=== PATIENT | male | born 1930 | race Caucasian/White ===

== ENCOUNTER 2017-01-04 11:31 | Emergency (ER) | payer OTHER ==
[~2017-01-04] VITALS: Ht 172.7 cm; Wt 72.1 kg
[2017-01-04 11:53] VITALS: BP 147/68; PULSE 69; RESP 16; TEMP 98.6; O2SAT 99
[2017-01-04] MEDS ORDERED: ASPI1TAB91 PO (12:03)
--- NOTE | 2017-01-04 12:16 | PD ---
HPI Chief Complaint: Bite or Sting Time Seen by Provider: 12:06 Travel History International Travel<30 days: No Contact w/Intl Traveler<30days: No Traveled to known affect area: No History of Present Illness HPI 86-year-old male presents to emergency Department with a dog bite to the left calf, which occurred this morning while he was walking. Patient states he was on the sidewalk passing gentleman who was on his cell phone with the dog's leash, when the dog bit him in the left calf. He didn't realize he was leaving that much until he arrived at his home. He is having minor discomfort, and has cleansed the wound and covered it with bandages already. Patient is unsure of his last tetanus shot. Animal control has been notified and report has been given. Patient denies any other issues. He has no known drug allergies. PFSH Past Medical History Hx Anticoagulant Therapy: Yes (asa 81mg) Cerebrovascular Accident: Yes (cva) Social History Alcohol Use: Yes Tobacco Use: No Substance Use: No Allergies-Medications (Allergen,Severity, Reaction): Coded Allergies: No Known Allergies (Unverified , 01/04/17) Reported Meds & Prescriptions Reported Meds & Active Scripts Active Reported Aspirin Adult Low Strength (Aspirin) 81 Mg Tabdr 81 Mg PO DAILY Review of Systems Except as stated in HPI: all other systems reviewed are Neg General / Constitutional: No: Fever Eyes: No: Visual changes HENT: No: Headaches Cardiovascular: No: Chest Pain or Discomfort Respiratory: No: Shortness of Breath Gastrointestinal: No: Abdominal Pain Genitourinary: No: Dysuria Musculoskeletal: No: Pain Skin: Positive Lesions (see history present illness.), No Rash Neurologic: No: Weakness Psychiatric: No: Depression Endocrine: No: Polydipsia Hematologic/Lymphatic: No: Easy Bruising Physical Exam Narrative GENERAL: Patient appears in no acute distress. SKIN: Warm and dry. Normal color. Normal turgor. Patient has 2 superficial puncture wounds to the left upper lateral calf with minimal venous/capillary bleeding, as well as a larger superficial abrasion type wound consistent with the patient's history in the middle left lateral calf. Bleeding in this area is also minimal. HEAD: Atraumatic. Normocephalic. EYES: Pupils equal and round. No scleral icterus. No injection or drainage. ENT: No nasal bleeding or discharge. Mucous membranes pink and moist. Pharynx is clear. Airway is patent. NECK: Trachea midline. No JVD. CARDIOVASCULAR: Regular rate and rhythm. RESPIRATORY: No accessory muscle use. MUSCULOSKELETAL: Extremities without clubbing, cyanosis, or edema. No obvious deformities. NEUROLOGICAL: Awake and alert. No obvious cranial nerve deficits. Motor grossly within normal limits. Five out of 5 muscle strength in the arms and legs. Normal speech. PSYCHIATRIC: Appropriate mood and affect; insight and judgment normal. Data Data Last Documented VS Vital Signs Date Time Temp Pulse Resp B/P Pulse Ox O2 Delivery O2 Flow Rate FiO2 01/04/17 11:53 98.6 69 16 147/68 99 Orders Tetanus/Diphtheria Tox Adult (Tetanus/Di (01/04/17 12:30) Amoxicil-Clavulanate (Augmentin) (01/04/17 12:30) [facility] Medical Decision Making Medical Screen Exam Complete: Yes Emergency Medical Condition: Yes Differential Diagnosis Dog bite. Abrasions. Puncture wound. Need for tetanus. Narrative Course Patient is medically stable at time of exam. The wounds were cleansed and bandaged without need for suture. Patient is given tetanus IM. Patient is given first dose of Augmentin 875 by mouth. Patient is to cleanse his wounds twice daily and cover with antibiotic ointment and dressing for the next week. Patient is given a prescription for Augmentin 875 twice a day 7 days. Patient is to follow-up with animal control to ensure that the animal involved was up-to-date on its rabies. Patient is to return to emergency department if rabies immune no globulin is necessary, based on animal control and investigation. Patient can also return if any worsening symptoms develop. Diagnosis Primary Impression: Dog bite Qualified Code: W54.0XXA - Dog bite, initial encounter Patient Instructions: Animal Bite (ED), Diphtheria Tetanus and Pertussis Vaccine (ED), General Instructions, Tetanus (ED) Additional Instructions: Patient is given tetanus IM. Patient is given first dose of Augmentin 875 by mouth. Patient is to cleanse his wounds twice daily and cover with antibiotic ointment and dressing for the next week. Patient is given a prescription for Augmentin 875 twice a day 7 days. Patient is to follow-up with animal control to ensure that the animal involved was up-to-date on its rabies. Patient is to return to emergency department if rabies immune no globulin is necessary, based on animal control and investigation. Patient can also return if any worsening symptoms develop. Med/Other Pt SpecificInfo: Prescription(s) given Scripts Amoxicillin-Clavulanate (Augmentin)875-125 mg Tdr677 Mg PO BID #14 TAB not for use in [facility] <30 ml/min. Prov:Gilberto Flanagan MD 01/04/17 Disposition: 01 DISCHARGE HOME Condition: Stable Angelito Paulino Jan 04, 2017 12:16
[2017-01-04] MEDS ORDERED: AUGM875T PO (12:22)
[2017-01-04] MEDS ORDERED: AMOXICILLIN/CLAVULANATE K 875 MG TAB PO ONE (12:30)
[2017-01-04] MEDS ORDERED: TETANUS/DIPHTHERIA TOXOID ADULT 0.5 ML VIAL IM ONE (12:30)
== END 2017-01-04 12:40 | disposition home or self-care (01) ==
LOC: PHEFT 11:31
DX: S81.852A Open bite, left lower leg, initial encounter (principal); W54.0XXA Bitten by dog, initial encounter; Z23 Encounter for immunization
CPT/HCPCS: 90471; 90714